=== PATIENT | male | born 1940 | race Caucasian/White ===

== ENCOUNTER 2018-06-16 22:35 | Emergency (ER) | payer OTHER ==
[~2018-06-16] VITALS: Ht 182.9 cm; Wt 109.3 kg
--- NOTE | 2018-06-16 22:47 | NUR ---
PT BIB [id number]. PT A/OX4, ABLE TO FOLLOW COMMANDS. PT C/O BLOODY STOOL SINCE 1900 TODAY. PT DENIES PAIN, C/P, SOB, N/V, DIZZINESS, HEADACHE. VSS. ER AT BEDSIDE FOR MSE.
[2018-06-16] MEDS ORDERED: IV NORMAL SALINE 1000 ML BAG IV ONE (23:00)
[2018-06-16 23:12] LABS: BASOPHILS # (AUTO) 0.1 K/uL (0.0-8.0); BASOPHILS % (AUTO) 0.9 % (0.0-2.0); EOSINOPHILS # (AUTO) 0.1 K/uL (0.0-0.7); EOSINOPHILS % (AUTO) 2.5 % (0.0-7.0); HEMATOCRIT 38.8 % (36.7-47.1); HEMOGLOBIN 12.9 g/dL (12.5-16.3); LYMPHOCYTES # (AUTO) 1.4 K/uL (20.0-40.0); LYMPHOCYTES % (AUTO) 24.3 % (20.5-51.5); MEAN CORPUSCULAR HGB CONC 33 g/dL (32.5-36.3); MONOCYTES % (AUTO) 17.2 % (0.0-11.0); NEUTROPHILS # (AUTO) 3.1 K/uL (1.8-8.9); NEUTROPHILS % (AUTO) 55.1 % (38.5-71.5); PLATELET COUNT (AUTO) 179 K/uL (152-348); RED BLOOD CELL COUNT(AUTO) 4.32 MIL/uL (4.06-5.63); WHITE BLOOD COUNT (AUTO) 5.6 K/uL (3.6-10.2)
[2018-06-16 23:17] LABS: CARBON DIOXIDE 29 mmol/L (21-32); CHLORIDE 104 mmol/L (98-107); CREATININE 1.1 mg/dL (0.6-1.3); GLUCOSE 86 mg/dL (74-106); POTASSIUM 4.9 mmol/L (3.5-5.1); UREA NITROGEN, BLOOD 17 mg/dL (7-18)
[2018-06-16 23:23] LABS: ALANINE AMINOTRANSFERASE 20 U/L (16-63); ALKALINE PHOSPHATASE 41 U/L (50-136); ASPARTATE AMINOTRANSFERASE 32 U/L (15-37); BILIRUBIN,DIRECT 0.2 mg/dL (0.0-0.2); BILIRUBIN,TOTAL 0.9 mg/dL (0.2-1.0); LIPASE 230 U/L (73-393); TOTAL PROTEIN, SERUM 7.8 g/dL (6.4-8.2)
--- NOTE | 2018-06-16 23:26 | NUR ---
PT TAKEN TO RADIOLOGY FOR CT SCAN.
--- NOTE | 2018-06-16 23:41 | NUR ---
PT BACK IN DEPARTMENT FROM CT SCAN.
--- NOTE | 2018-06-17 00:11 | NUR ---
XIMENA SORIANO SPEAKING W/ RUFINO FAIR MD ON THE PHONE.
[2018-06-17 00:15] LABS: BAND % (MANUAL) 9 % (0-10); EOSINOPHILS % (MANUAL) 4 % (0-8); LYMPHOCYTES % (MANUAL) 8 % (20-40); METAMYELOCYTES % 5 % (0-1); MONOCYTES % (MANUAL) 6 % (2-10); MYELOCYTES % 3 % (0-0); NEUTROPHILS % (MANUAL) 48 % (42-75); PROMYELOCYTES % 11 %
--- NOTE | 2018-06-17 02:04 | NUR ---
ETA FOR BLS PICK-UP [phone] W/ [facility] ([facility]).
--- NOTE | 2018-06-17 02:58 | NUR ---
GAVE REPORT TO PJ MACARIO, AT [facility] M/S [facility].
--- NOTE | 2018-06-17 03:35 | NUR ---
CALLED [facility], PICK-UP DELAYED UNTIL 0 BY [facility].
--- NOTE | 2018-06-17 04:11 | NUR ---
PRN UNIT [id number] IN DEPARTMENT TO TRANSFER PT TO [facility]. PT VSS, NO COMPLAINTS AND NO APPARENT DISTRESS AT THIS TIME.
== END 2018-06-17 04:29 | disposition short-term general hospital (02) ==
LOC: ER 22:37
DX: K62.3 Rectal prolapse (principal); K92.1 Melena; I50.9 Heart failure, unspecified; I48.91 Unspecified atrial fibrillation
CPT/HCPCS: 36415; 70030-TC; 71045; 83690; 85025; 85730; 93005; A4663; J7030